=== PATIENT | male | born 1980 | race Caucasian/White ===

== ENCOUNTER 2022-09-15 17:31 | Emergency (ER) | payer MEDICAID, SELFPAY ==
[2022-09-15] VITALS (7 sets, daily range): BP systolic 129–143; BP diastolic 89–105; PULSE 51–79; RESP 16–18; TEMP 36.8; O2SAT 96–99; BMI 25.1
--- NOTE | 2022-09-15 18:43 | CTR_ITS ---
PROCEDURE INFORMATION: Exam: CT Abdomen And Pelvis With Contrast Exam date and time: 09/15/2022 8:36 PM Age: 42 years old Clinical indication: Abdominal pain; Prior surgery; Surgery type: Gb; Patient HX: C//o epigastric pain. History of pancreatitis. ; Additional info: Epigastric pain, history of chronic pancreatitis. TECHNIQUE: Imaging protocol: Computed tomography of the abdomen and pelvis with contrast. Radiation optimization: All CT scans at this facility use at least one of these dose optimization techniques: automated exposure control; mA and/or kV adjustment per patient size (includes targeted exams where dose is matched to clinical indication); or iterative reconstruction. Contrast material: OMNI 350; Contrast volume: 100 ml; Contrast route: INTRAVENOUS (IV); REPORTING DATA: Count of CT and Cardiac NM exams in prior 12 months: This patient has received 0 known CTs and 0 known cardiac nuclear medicine studies in the 12 months prior to the current study. COMPARISON: CT abdomen pelvis w con* [id number] 08/24/2018 3:44 PM RADIATION DOSE METRICS: Total DLP (mGy-cm): 724.93 FINDINGS: Lungs: Bibasilar atelectasis versus minimal infiltrate. Liver: Hepatic steatosis. Gallbladder and bile ducts: Cholecystectomy. Pancreas: Pancreatic duct dilated to 7.9 mm, increased compared to prior exam. Multiple calcifications are seen in the region of the pancreatic head, measuring up to 7.5 mm, new compared to prior exam, one of these may be within the common bile duct and causing obstruction as seen on series 6, image 25, MRCP could further evaluate this. Descending duodenal wall thickening suggestive of a duodenitis with minimal edema about the pancreatic head may reflect a pancreatitis as well. Spleen: Normal. No splenomegaly. Adrenal glands: Normal. No mass. Kidneys and ureters: Several bilateral punctate nonobstructing renal calyceal stones versus early secretion of contrast seen. Stomach and bowel: Diverticulosis without diverticulitis. Appendix: No evidence of appendicitis. Intraperitoneal space: 7.1 cm fluid collection along the undersurface of the liver, new compared to prior exam, may reflect some loculated ascites, and infectious process is felt less likely given lack of a thick enhancing wall. Vasculature: Unremarkable. No abdominal aortic aneurysm. Lymph nodes: Unremarkable. No enlarged lymph nodes. Urinary bladder: Unremarkable as visualized. Reproductive: Unremarkable as visualized. Bones/joints: Bilateral L5 pars interarticularis chronic defects. Soft tissues: Unremarkable. CT/CT abdomen pelvis w con* [id number] IMPRESSION: 1. Pancreatic duct dilated to 7.9 mm, increased compared to prior exam. Multiple calcifications are seen in the region of the pancreatic head, measuring up to 7.5 mm, new compared to prior exam, one of these may be within the common bile duct and causing obstruction as seen on series 6, image 25, MRCP could further evaluate this. 2. Descending duodenal wall thickening suggestive of a duodenitis with minimal edema about the pancreatic head may reflect a pancreatitis as well. 3. Diverticulosis without diverticulitis. 4. Bilateral L5 pars interarticularis chronic defects. 5. 7.1 cm fluid collection along the undersurface of the liver, new compared to prior exam, may reflect some loculated ascites, and infectious process is felt less likely given lack of a thick enhancing wall. 6. Bibasilar atelectasis versus minimal infiltrate. 7. Hepatic steatosis. 8. Cholecystectomy. 9. Several bilateral punctate nonobstructing renal calyceal stones versus early secretion of contrast seen.
[2022-09-15] MEDS: morphine 4 mg/mL SDV 1 mL IVP ×2 (18:52→20:30)
[2022-09-15] MEDS: sodium chloride 0.9% 1,000 ML 999 ML IV (18:53)
[2022-09-15] MEDS: ondansetron 2 mg/ML SDV 2 mL 4 MG IVP (18:53)
[2022-09-15 19:05] LABS: Basophils # 0.1 10^3/uL (0.0-0.1); Basophils % 0.7 %; Eosinophils # 0.2 10^3/uL (0.0-0.8); Eosinophils % 2.4 %; Hematocrit 53.6 % (42.0-52.0); Hemoglobin 18.6 g/dL (11.7-16.6); Lymphocytes # 2.2 10^3/uL (0.8-4.8); Lymphocytes % 24.5 %; Mean Corpuscular HGB Conc 34.7 g/dL (30.0-36.0); Mean Corpuscular Volume 100.8 fl (80-94); Mean Platelet Volume 10.8 fL (7.4-10.4); Monocytes # 0.6 10^3/uL (0.2-0.9); Monocytes % 6.9 %; Neutrophils # 5.72 10^3/uL (1.8-7.7); Neutrophils % 65.2 %; Nucleated Red Blood Cells % 0 %; Platelet Count 138 10^3/cmm (130-400); Red Blood Count 5.32 10^6/uL (4.1-5.3); Red Cell Distribution Width 13.2 % (12.1-15.1); White Blood Count 8.8 10^3/uL (4.0-10.0)
--- NOTE | 2022-09-15 19:11 | W.ED.ABDPA2 ---
HPI - Abdominal Pain General: Chief Complaint: Abdominal Pain Stated Complaint: abd pain Time Seen by Provider: 09/15/22 17:43 Source: patient Limitations: no limitations History of Present Illness: This 42-year-old male with a history of chronic pancreatitis presents to the ER with periumbilical/epigastric pain that started 3 days ago. There is no associated nausea, vomiting or fever. Patient's first bout of acute pancreatitis was about 5 to 6 years ago and since then he has been having intermittent episodes of recurrent pancreatitis. He appears clinically stable with no cough, shortness of breath or chest pain. Associated Symptoms: Denies chills and dysuria Review of Systems Const: Denies: chills, body aches or change in appetite Card: Denies: chest pain or lightheadedness GI: Reports: abdominal pain : Denies: dysuria Musc: Denies: neck pain or back pain Neuro: Denies: headache(s) or weakness in extremities Psych: Denies: depression All/Imm: Denies: urticaria, tongue swelling or facial swelling Physical Exam Const: COMMON NORMALS: no acute distress, patient oriented x3, no limitations and alert HENMT: COMMON NORMALS: normocephalic HEAD & SCALP: normocephalic Eye: COMMON NORMALS: EOMs intact bilaterally Neck/C-Spine: COMMON NORMALS: full ROM and supple Chest: COMMONS NORMALS: normal inspection of the chest Resp: COMMON NORMALS: normal respiratory effort, No retractions, No use of accessory muscles and clear to auscultation bilaterally AUSCULTATION: clear to auscultation bilaterally Cardio: COMMON NORMALS: regular rate, regular rhythm and No murmurs present (Cardio) RATE: regular rate RHYTHM: regular rhythm GI: COMMON NORMALS: Normal to inspection, nondistended, normoactive bowel sounds present and non-tender OTHER: Soft abdomen, periumbilical and epigastric tenderness, normal bowel sounds, no distention or rigidity. : COMMON NORMALS: Yes no CVA tenderness BLADDER/KIDNEY EXAM: Yes no CVA tenderness Back/Pelvis: COMMON NORMALS: no CVA tenderness and no thoracic nor lumbar tenderness Extremity: GENERAL: Yes normal exam except as noted Neuro: COMMON NORMALS: patient oriented x3 and no focal motor deficits SENSORIUM/ORIENTATION: Yes alert Psych: COMMON NORMALS: mental status grossly normal and cooperative Course Vital Signs: Vital signs: Vital Signs Temperature 98.2 F 09/15/22 17:35 Pulse Rate 79 09/15/22 21:22 Respiratory Rate 18 09/15/22 21:22 Blood Pressure 141/89 09/15/22 19:05 Pulse Oximetry 96 09/15/22 21:22 Oxygen Delivery Me thod 09/15/22 17:35 MDM - Abdominal Pain Medical Decision Making Medical decision making: History as above. While waiting for completion of work-up, patient got impatient and decided to leave AGAINST MEDICAL ADVICE. He was made aware of the risks involved with his decision to leave prior to completion of his work-up. He is competent to make the decision and so he was allowed to sign out AGAINST MEDICAL ADVICE. He can return if he changes his mind. Lab Data 09/15/22 18:05 09/15/22 18:05 Labs/Radiology: Radiology Impressions Abdomen/Pelvis CT 09/15/22 18:43 IMPRESSION: 1. Pancreatic duct dilated to 7.9 mm, increased compared to prior exam. Multiple calcifications are seen in the region of the pancreatic head, measuring up to 7.5 mm, new compared to prior exam, one of these may be within the common bile duct and causing obstruction as seen on series 6, image 25, MRCP could further evaluate this. 2. Descending duodenal wall thickening suggestive of a duodenitis with minimal edema about the pancreatic head may reflect a pancreatitis as well. 3. Diverticulosis without diverticulitis. 4. Bilateral L5 pars interarticularis chronic defects. 5. 7.1 cm fluid collection along the undersurface of the liver, new compared to prior exam, may reflect some loculated ascites, and infectious process is felt less likely given lack of a thick enhancing wall. 6. Bibasilar atelectasis versus minimal infiltrate. 7. Hepatic steatosis. 8. Cholecystectomy. 9. Several bilateral punctate nonobstructing renal calyceal stones versus early secretion of contrast seen. Laboratory Results WBC 8.8 10^3/uL (4.0-10.0) 09/15/22 18:05 RBC 5.32 10^6/uL (4.1-5.3) H 09/15/22 18:05 Hgb 18.6 g/dL (11.7-16.6) H 09/15/22 18:05 Hct 53.6 % (42.0-52.0) H 09/15/22 18:05 MCV 100.8 fl (80-94) H 09/15/22 18:05 MCH 35.0 pg (28.0-34.0) H 09/15/22 18:05 MCHC 34.7 g/dL (30.0-36.0) 09/15/22 18:05 RDW 13.2 % (12.1-15.1) 09/15/22 18:05 Plt Count 138 10^3/cmm (130-400) 09/15/22 18:05 MPV 10.8 fL (7.4-10.4) H 09/15/22 18:05 Neut % (Auto) 65.2 % 09/15/22 18:05 Lymph % (Auto) 24.5 % 09/15/22 18:05 [place] % (Auto) 6.9 % 09/15/22 18:05 Eos % (Auto) 2.4 % 09/15/22 18:05 Baso % (Auto) 0.7 % 09/15/22 18:05 Neut # (Auto) 5.72 10^3/uL (1.8-7.7) 09/15/22 18:05 Lymph # (Auto) 2.2 10^3/uL (0.8-4.8) 09/15/22 18:05 [place] # (Auto) 0.6 10^3/uL (0.2-0.9) 09/15/22 18:05 Eos # (Auto) 0.2 10^3/uL (0.0-0.8) 09/15/22 18:05 Baso # (Auto) 0.1 10^3/uL (0.0-0.1) 09/15/22 18:05 Nucleated RBC % (auto) 0 % 09/15/22 18:05 Nucleated RBCs # 0.0 /100WBC 09/15/22 18:05 Sodium 136 mmol/L (136-145) 09/15/22 18:05 Potassium 3.1 mmol/L (3.5-5.1) L 09/15/22 18:05 Chloride 101 mmol/L (98-107) 09/15/22 18:05 Carbon Dioxide 24 mmol/L (22-29) 09/15/22 18:05 Anion Gap 14.1 (5-19) 09/15/22 18:05 BUN 7 mg/dL (6-20) 09/15/22 18:05 Creatinine 0.7 mg/dL (0.7-1.2) 09/15/22 18:05 GFR Calculation 124.9 mL/min (90-130) 09/15/22 18:05 Glucose 122 mg/dL (65-115) H 09/15/22 18:05 Calculated Osmolality 281 mOsm/kg (285-295) L 09/15/22 18:05 Calcium 8.6 mg/dL (8.5-10.5) 09/15/22 18:05 Total Bilirubin 1.2 mg/dL (0.15-1.2) 09/15/22 18:05 AST 31 U/L (0-40) 09/15/22 18:05 ALT 48 U/L (0-41) H 09/15/22 18:05 Alkaline Phosphatase 119 U/L (40-130) 09/15/22 18:05 Total Protein 6.1 g/dL (6.6-8.7) L 09/15/22 18:05 Albumin 3.4 g/dL (3.5-5.2) L 09/15/22 18:05 Globulin 2.7 g/dL (1.3-4.6) 09/15/22 18:05 Triglycerides 109 mg/dL (0-150) 09/15/22 18:05 Lipase 349 U/L (13-60) H 09/15/22 18:05 Discharge Plan Discharge Patient Disposition: Left Against Medical Advice Clinical Impression: Acute on chronic pancreatitis Condition: Stable Coding Level of Care Code ED [employer] Specialist for Shauna Mayfield
[2022-09-15 19:15] LABS: Alanine Aminotransferase 48 U/L (0-41); Albumin Level 3.4 g/dL (3.5-5.2); Alkaline Phosphatase 119 U/L (40-130); Anion Gap 14.1 (5-19); Aspartate Amino Transferase 31 U/L (0-40); Blood Urea Nitrogen 7 mg/dL (6-20); Calcium 8.6 mg/dL (8.5-10.5); Carbon Dioxide 24 mmol/L (22-29); Chloride 101 mmol/L (98-107); Creatinine Clr Calc Pharmacy 154.4421; Globulin 2.7 g/dL (1.3-4.6); Glomerular Filtration Rate 124.9 mL/min (90-130); Glucose 122 mg/dL (65-115); Osmolality Calculated 281 mOsm/kg (285-295); Potassium 3.1 mmol/L (3.5-5.1); Sodium 136 mmol/L (136-145); Total Bilirubin 1.2 mg/dL (0.15-1.2); Total Protein 6.1 g/dL (6.6-8.7)
[2022-09-15 19:23] LABS: Lipase 349 U/L (13-60)
[2022-09-15] MEDS: iohexol 350 mg/mL 500 mL Btl (per mL) IV (20:37)
[2022-09-15 21:14] LABS: Triglycerides 109 mg/dL (0-150)
== END 2022-09-15 21:23 | disposition left against medical advice (07) ==
PROVIDERS: Emergency Provider Family Medicine
DX: K86.1 Other chronic pancreatitis (principal); K57.90 Diverticulosis of intestine, part unspecified, without perforation or abscess without bleeding; N20.0 Calculus of kidney
CPT/HCPCS: 74177; 80053; 83690; 84478; 85025; 96361; 96374; 96375; 96376; 99285; J2270; J2405; J7030; Q9967

== ENCOUNTER → 2025-06-27 13:56 | Outpatient (BNVA) | payer MEDICAID, SELFPAY | DX: K85.90 Acute pancreatitis without necrosis or infection, unspecified (principal) | CPT/HCPCS: 80053; 83690; 85025 ==

== ENCOUNTER → 2025-07-10 08:23 | Outpatient (BNVA) | payer MEDICAID, SELFPAY | PROVIDERS: PCP Family Medicine; Visit Provider Family Medicine | DX: Z13.6 Encounter for screening for cardiovascular disorders (principal); K86.0 Alcohol-induced chronic pancreatitis | CPT/HCPCS: 80053; 80061; 83036; 83690; 85025 ==